=== PATIENT | male | born 2000 | race Caucasian/White ===

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

== ENCOUNTER → 2022-07-16 | Outpatient (CLI) | payer BC ==
[2022-07-16 12:22] LABS: HEMATOCRIT 44.8 % (42.0-52.0); MEAN CELL VOLUME 86.8 fl (80.0-94.0); MEAN CORPUSCULAR HGB CONC 35.7 g/dl (33.0-37.0); MEAN PLATELET VOLUME 9.5 fl (9.6-12.3); RED BLOOD COUNT 5.16 10*6/uL (4.50-5.90); RED CELL DISTRI WIDTH 11.5 % (0-14.5); WHITE BLOOD COUNT 7.6 10*3/uL (4.8-10.8)
[2022-07-16 12:39] LABS: BUN 17 mg/dl (7-24); CHLORIDE 106 mmol/L (98-107); CHOLESTEROL 193 mg/dL (<200); CREATININE 0.95 mg/dL (0.70-1.30); SGOT/AST 24 IU/L (3-35); SGPT/ALT 57 U/L (12-78); SODIUM 138 mmol/L (136-145); TOTAL PROTEIN 8.1 gm/dL (6.4-8.2); TRIGLYCERIDES 102 mg/dl (<150)
[2022-07-16 12:44] LABS: ALKALINE PHOSPHATASE 80 U/L (45-117); FREE T4 0.91 ng/dl (0.76-1.46); LDL CHOLESTEROL 122 mg/dL (9-159)
[2022-07-16 13:02] LABS: VITAMIN D, 25-HYDROXY 13.3 ng/mL (30-100)
[2022-07-18 18:06] LABS: TESTOSTERONE FREE, (DIRECT) 8.4 pg/mL (9.3-26.5)
== END | disposition home or self-care (01) ==
LOC: LAB 11:49
PROVIDERS: ATTEND Family Medicine
DX: Z00.00 Encounter for general adult medical examination without abnormal findings (principal); E55.9 Vitamin D deficiency, unspecified; G47.10 Hypersomnia, unspecified; R53.83 Other fatigue; I10 Essential (primary) hypertension